=== PATIENT | male | born 1965 | race Caucasian/White ===

== ENCOUNTER 2019-10-05 12:51 | Emergency (ER) | payer MEDICAID, SELFPAY ==
[2019-10-05 12:53] VITALS: BP 125/82; PULSE 87; RESP 17; TEMP 37.2; O2SAT 97; BMI 23.0
--- NOTE | 2019-10-05 13:02 | ECG_ITS ---
Measurements Intervals [place] Rate: 86 P: 77 IN: 148 QRS: 64 QRSD: 90 T: 61 QT: 348 QTc: 418 SINUS RHYTHM No previous ECG available for comparison Electronically Signed On 10-05-2019 16:48:13 CDT by Jeramie Garcia M.D. [email or web address]
--- NOTE | 2019-10-05 13:04 | XR_ITS ---
WS: [id number] PORTABLE CHEST HISTORY: chest pain COMPARISON: None available. Hyperexpanded lungs with emphysema. No pneumonia. Normal vasculature. No pleural effusion or pneumoth orax. Cardiac size: Normal. Mediastinum/Aorta: Normal mediastinum. No osseous abnormality seen. XR/XR chest 1V portable [id number] IMPRESSION: Emphysema with no acute cardiopulmonary disease.
[2019-10-05 14:00] LABS: Basophils # 0.1 10^3/uL (0.0-0.1); Basophils % 0.5 %; Eosinophils # 0.1 10^3/uL (0.0-0.8); Eosinophils % 0.6 %; Hematocrit 45.9 % (42.0-52.0); Hemoglobin 15.2 g/dL (11.7-16.6); Lymphocytes # 1.8 10^3/uL (0.8-4.8); Lymphocytes % 17.8 %; Mean Corpuscular HGB Conc 33.1 g/dL (30.0-36.0); Mean Corpuscular Hemoglobin 29.6 pg (28.0-34.0); Mean Corpuscular Volume 89.3 fL (80-94); Mean Platelet Volume 10.3 fL (7.4-10.4); Monocytes # 0.4 10^3/uL (0.2-0.9); Monocytes % 4.2 %; Neutrophils # 7.6 10^3/uL (1.8-7.7); Neutrophils % 76.4 %; Nucleated Red Blood Cells % 0 %; Platelet Count 211 10^3/cmm (130-400); Red Blood Count 5.14 10^6/uL (4.1-5.3); Red Cell Distribution Width 11.8 % (12.1-15.1)
[2019-10-05 14:10] LABS: Alanine Aminotransferase 15 U/L (0-41); Albumin Level 4.4 g/dL (3.5-5.2); Alkaline Phosphatase 81 IU/L (40-130); Anion Gap 15.4 (5-19); Aspartate Amino Transferase 18 U/L (0-40); Blood Urea Nitrogen 8 mg/dL (6-20); Carbon Dioxide 25 mmol/L (22-29); Chloride 103 mmol/L (98-107); Creatinine Clr Calc Pharmacy 92.4553; Globulin 2.3 g/dL (1.3-4.6); Glomerular Filtration Rate 77.9 mL/min (90-130); Glucose 95 mg/dL (65-115); Lipase 18 U/L (13-60); Osmolality Calculated 284 mOsm/kg (285-295); Potassium 4.4 mmol/L (3.5-5.1); Sodium 139 mmol/L (136-145); Total Bilirubin 0.3 mg/dL (0.15-1.2); Total Protein 6.7 g/dL (6.6-8.7)
[2019-10-05 14:12] LABS: INR 0.98 (0.8-1.2)
[2019-10-05 14:13] LABS: Partial Thromboplastin Time 31.3 SECONDS (23.9-36.7); Troponin(5th) Baseline 6 ng/mL (0-15)
[2019-10-05 14:31] VITALS: BP 120/80; PULSE 79; RESP 19; O2SAT 97
[2019-10-05 15:01] VITALS: BP 120/73; PULSE 82; RESP 17; O2SAT 98
--- NOTE | 2019-10-05 15:02 | ECG_ITS ---
Measurements Intervals [place] Rate: 78 P: 76 MS: 144 QRS: 74 QRSD: 85 T: 66 QT: 363 QTc: 415 SINUS RHYTHM No previous ECG available for comparison Electronically Signed On 10-05-2019 16:49:36 CDT by Jeramie Garcia M.D. [email or web address]
--- NOTE | 2019-10-05 15:15 | ED_ITS ---
HPI - Chest Pain General: Chief Complaint: Chest Pain Stated Complaint: CHEST PAIN Time Seen by Provider: 10/05/19 12:53 History of Present Illness: HPI narrative: Patient is a 54-year-old gentleman presenting today with chest pain. He said he was walking back from town to his house, which is a walk he commonly makes. He started having chest pain which came on and was very severe and then went away. He said it kept coming and going and he got short of breath and sweaty. He called EMS and they brought him in. He was given aspirin, nitro. His pain is completely resolved now. He has COPD and chronic shortness of breath and cough and says that is unchanged today. He denies any other recent illness. He denies any recent medication changes. He has not had any fevers or chills. He says that he was told he had an DC in the early . Sometime around 2008 he went to the hospital and was told he was in atrial fibrillation but they never put him on any medication or did anything about it. MD complaint: chest pain Pertinent past history: prior DC Onset (ago): hour(s) (2) Timing of current episode: episodic Onset: during exertion Pain location: substernal Pain radiation: none Quality: aching Relieving factors: nitroglycerin and rest Associated symptoms: Reports dyspnea (Chronic and unchanged); Deny abdominal pain, fever(s), nausea or vomiting Review of Systems General: Reports: 10 or more systems reviewed and unremarkable except in HPI and below Const: Denies: fever(s), chills, fatigue or malaise Eyes: Denies: change in vision ENMT: Denies: odynophagia Card: Reports: chest pain; Denies: swelling of feet/ankles Resp: Reports: dyspnea (Chronic and unchanged) and productive cough (Chronic and unchanged); Denies: non-productive cough GI: Denies: abdominal pain, nausea or vomiting : Denies: flank pain Musc: Denies: neck pain or back pain Skin/Breast: Denies: rash Neuro: Denies: headache(s), numbness in extremities or weakness in extremities Osei/Lymph: Denies: easy bruising or easy bleeding PFS ED PFSH: Social History Smoking and tobacco status: current every day smoker Physical Exam Const: COMMON NORMALS: no acute distress, patient oriented x3, no limitations and alert GENERAL APPEARANCE: cooperative and comfortable HENMT: HEAD & SCALP: normal to inspection FACE & SINUS: normal facial exam Eye: GENERAL EYE: appearance normal, both eyes and all related structures Neck/C-Spine: COMMON NORMALS: supple, no meningeal signs and no JVD Chest: COMMONS NORMALS: normal inspection of the chest Resp: COMMON NORMALS: normal respiratory effort, No use of accessory muscles and clear to auscultation bilaterally AUSCULTATION: clear to auscultation bilaterally Cardio: COMMON NORMALS: no JVD, regular rate, regular rhythm and No murmurs present (Cardio) RATE: regular rate RHYTHM: regular rhythm GI: COMMON NORMALS: Normal to inspection, nondistended, normoactive bowel sounds present, Soft to palpation and non-tender INSPECTION: Yes normal to inspection AUSCULTATION: Yes normoactive bowel sounds PALPATION: Yes Soft to palpation Back/Pelvis: COMMON NORMALS: thoracic and lumbar spine normal to inspection Extremity: COMMON NORMALS: normal to inspection Neuro: COMMON NORMALS: patient oriented x3, moves all extremities, no focal motor deficits and no sensory deficits noted SENSORIUM/ORIENTATION: Yes alert MENINGEAL SIGNS: Yes no meningeal signs Psych: COMMON NORMALS: mental status grossly normal, cooperative and normal affect Skin: COMMON NORMALS: no rashes or lesions noted and turgor normal GENERAL SKIN EXAM: no rashes or lesions noted and turgor normal Course ED course: Patient has remained pain-free throughout his ED stay. His show probably an early repolarization pattern with no sign of ischemia. They are unchanged from the first to the second. Initial troponin is negative and the second is pending. Vital Signs: Vital signs: Vital Signs Temperature 98.9 F 10/05/19 12:53 Pulse Rate 81 10/05/19 16:28 Respiratory Rate 18 10/05/19 16:28 Blood Pressure 136/86 10/05/19 16:28 Pulse Oximetry 98 10/05/19 16:28 MDM - Chest Pain Lab Data: Labs: Lab Results 10/05/19 10/05/19 10/05/19 Range/Units 13:28 13:28 13:28 WBC 10.0 (4.0-10.0) 10^3/ uL RBC 5.14 (4.1-5.3) 10^6/u L Hgb 15.2 (11.7-16.6) g/dL Hct 45.9 (42.0-52.0) % MCV 89.3 (80-94) fL MCH 29.6 (28.0-34.0) pg MCHC 33.1 (30.0-36.0) g/dL RDW 11.8 L (12.1-15.1) % Plt Count 211 (130-400) 10^3/c mm MPV 10.3 (7.4-10.4) fL Neut % (Auto) 76.4 % Lymph % (Auto) 17.8 % [place] % (Auto) 4.2 % Eos % (Auto) 0.6 % Baso % (Auto) 0.5 % Neut # (Auto) 7.6 (1.8-7.7) 10^3/u L Lymph # (Auto) 1.8 (0.8-4.8) 10^3/u L [place] # (Auto) 0.4 (0.2-0.9) 10^3/u L Eos # (Auto) 0.1 (0.0-0.8) 10^3/u L Baso # (Auto) 0.1 (0.0-0.1) 10^3/u L Nucleated RBC % (a uto) 0 % Nucleated RBCs # 0.0 /100WBC PT 13.30 (10.5-13.3) SECO NDS INR 0.98 (0.8-1.2) APTT 31.3 (23.9-36.7) SECO NDS Sodium 139 (136-145) mmol/L Potassium 4.4 (3.5-5.1) mmol/L Chloride 103 (98-107) mmol/L Carbon Dioxide 25 (22-29) mmol/L Anion Gap 15.4 (5-19) BUN 8 (6-20) mg/dL Creatinine 1.0 (0.7-1.2) mg/dL GFR Calculation 77.9 L (90-130) mL/min Glucose 95 (65-115) mg/dL Calculated Osmolal ity 284 L (285-295) mOsm/k g Calcium 9.0 (8.5-10.5) mg/dL Total Bilirubin 0.3 (0.15-1.2) mg/dL AST 18 (0-40) U/L ALT 15 (0-41) U/L Alkaline Phosphata se 81 (40-130) IU/L Troponin T Baselin e (0-15) ng/mL Troponin T 120 Min [place] (0-15) ng/mL Delta Troponin T (0-10) ABS# Total Protein 6.7 (6.6-8.7) g/dL Albumin 4.4 (3.5-5.2) g/dL Globulin 2.3 (1.3-4.6) g/dL Lipase 18 (13-60) U/L 10/05/19 10/05/19 Range/Units 13:28 15:54 WBC (4.0-10.0) 10^3/ uL RBC (4.1-5.3) 10^6/u L Hgb (11.7-16.6) g/dL Hct (42.0-52.0) % MCV (80-94) fL MCH (28.0-34.0) pg MCHC (30.0-36.0) g/dL RDW (12.1-15.1) % Plt Count (130-400) 10^3/c mm MPV (7.4-10.4) fL Neut % (Auto) % Lymph % (Auto) % [place] % (Auto) % Eos % (Auto) % Baso % (Auto) % Neut # (Auto) (1.8-7.7) 10^3/u L Lymph # (Auto) (0.8-4.8) 10^3/u L [place] # (Auto) (0.2-0.9) 10^3/u L Eos # (Auto) (0.0-0.8) 10^3/u L Baso # (Auto) (0.0-0.1) 10^3/u L Nucleated RBC % (a uto) % Nucleated RBCs # /100WBC PT (10.5-13.3) SECO NDS INR (0.8-1.2) APTT (23.9-36.7) SECO NDS Sodium (136-145) mmol/L Potassium (3.5-5.1) mmol/L Chloride (98-107) mmol/L Carbon Dioxide (22-29) mmol/L Anion Gap (5-19) BUN (6-20) mg/dL Creatinine (0.7-1.2) mg/dL GFR Calculation (90-130) mL/min Glucose (65-115) mg/dL Calculated Osmolal ity (285-295) mOsm/k g Calcium (8.5-10.5) mg/dL Total Bilirubin (0.15-1.2) mg/dL AST (0-40) U/L ALT (0-41) U/L Alkaline Phosphata se (40-130) IU/L Troponin T Baselin e 6 (0-15) ng/mL Troponin T 120 Min [place] 6.00 (0-15) ng/mL Delta Troponin T 0 (0-10) ABS# Total Protein (6.6-8.7) g/dL Albumin (3.5-5.2) g/dL Globulin (1.3-4.6) g/dL Lipase (13-60) U/L EKG Data^: EKG 1: EKG interpretation date: 10/05/19 EKG interpretation time: 13:27 Interpretation: Normal sinus rhythm, rate 86, [place] interval 148, QRS duration 90. QTc is normal. [place] is normal. There is slight ST elevation in 1 2 and aVF but no reciprocal changes and this is likely early repolarization pattern. EKG 2: EKG interpretation date: 10/05/19 EKG interpretation time: 15:28 Interpretation: Normal sinus rhythm, rate 78, [place] interval 144, QRS duration 85. QTc is normal. [place] is normal. There is slight ST elevation in 1 2 and aVF but no reciprocal changes and this is likely early repolarization pattern. Discharge Plan Discharge Patient Disposition: Home, Self-Care Clinical Impression: Chest pain Qualifiers: Chest pain type: unspecified Qualified Code(s): R07.9 - Chest pain, unspecified Condition: Stable Prescriptions: No Action cyclobenzaprine 10 mg Tablet 10 mg PO TID PRN (Reason: Muscle Spasm) RF: 0 Mobic 15 mg Tablet 15 mg PO DAILY RF: 0 gabapentin 300 mg Capsule 300 mg PO TID RF: 0 ProAir HFA 90 mcg/actuation Hfa Aerosol Inhaler 2 puff INHALATION Q4H PRN (Reason: Shortness Of Breath) RF: 0 Wellbutrin XL 150 mg Tablet Extended Release 24 Hr 150 mg PO QAM RF: 0 Spiriva with HandiHaler 18 mcg Capsule, W/Inhalation Device 1 cap INHALATION DAILY RF: 0 Discharge Orders: Discharge Order (Routine); Ordered 10/05/19 Ordered By: Dipti Rocha Discharge Diet: Usual diet Discharge Activity: Resume usual activity Patient Instructions: Chest Pain (ED) Activity Restrictions/Additional Instructions: Follow up with your doctor to discuss need for further testing on your heart. Return to the ED if worse or new symptoms. Discharge Date/Time: 10/05/19 16:27 Coding Level of Care Code ED Collar Starcher for [place] Fwd Exam Comprehensive
[2019-10-05 15:31] VITALS: BP 117/67; PULSE 76; RESP 17; O2SAT 98
[2019-10-05 16:08] VITALS: BP 136/86; PULSE 82; RESP 16; O2SAT 99
[2019-10-05 16:19] LABS: Troponin 5 2HR Delta 0 ABS# (0-10)
[2019-10-05] MEDS: sodium chloride 0.9% 1,000 ML 999 ML IV (16:19)
[2019-10-05 16:28] VITALS: BP 136/86; PULSE 81; RESP 18; O2SAT 98
== END 2019-10-05 16:27 | disposition home or self-care (01) ==
PROVIDERS: Emergency Provider Emergency Medicine
DX: R07.9 Chest pain, unspecified (principal); F17.210 Nicotine dependence, cigarettes, uncomplicated
CPT/HCPCS: 12345; 36415; 71045; 80053; 83690; 84484; 85025; 85610; 85730; 93005; 96360; 99283; 99284; J7030